=== PATIENT | female | born 1965 | race Caucasian/White ===

== ENCOUNTER → 2022-04-11 | Outpatient (CLI) | payer OTHER | LOC: ORTHO 13:01 | PROVIDERS: ATTEND Orthopaedic Surgery | DX: G56.02 Carpal tunnel syndrome, left upper limb (principal) | CPT/HCPCS: 99203 ==

== ENCOUNTER 2022-04-30 05:37 | Outpatient (CLI) | payer OTHER ==
[~2022-04-30] VITALS: Ht 165.1 cm; Wt 77.4 kg
== END 2022-04-30 16:59 | disposition home or self-care (01) ==
LOC: PREOP 05:37
PROVIDERS: ATTEND Orthopaedic Surgery
DX: Z01.818 Encounter for other preprocedural examination (principal)

== ENCOUNTER 2022-05-07 07:48 | Day surgery (SDC) | payer OTHER ==
[~2022-05-07] VITALS: Ht 165.1 cm; Wt 77.4 kg
[2022-05-07] VITALS (7 sets, daily range): BP systolic 142–173; BP diastolic 86–97
[2022-05-07] MEDS ORDERED: ceFAZolin INJECTION 1,000 MG VIAL IV ONE (08:00)
[2022-05-07] MEDS ORDERED: LACTATED RINGERS 1,000 ML IV PRN (08:00)
[2022-05-07] MEDS ORDERED: ceFAZolin 1 GM/NS 50 ML (SDC/OR ONLY) IV ONE ×2 (08:00)
[2022-05-07] MEDS ORDERED: NEO/POLY/BAC (NEOSPORIN) OINT 15 GM TUBE ONE (08:18)
[2022-05-07] MEDS ORDERED: BUPIVACAINE 0.5% 30 ML (SENSORCAINE) VIAL ONE (08:18)
[2022-05-07] MEDS ORDERED: PROPOFOL INJECTION 0 ML IV ONE (08:44)
[2022-05-07] MEDS ORDERED: MIDAZOLAM 2 MG/2 ML (VERSED) VIAL ONE ×2 (08:44→10:04)
--- NOTE | 2022-05-07 09:55 | Progress Note-Pre Operative ---
Pre-Operative Progress Note Date of Available H&P: Apr 11, 2022 Date H&P Reviewed: May 07, 2022 Time H&P Reviewed: 09:45 History & Physical: H&P Reviewed, Patient Examed, No changes noted Pre-Operative Diagnosis: Left Carpal Tunnel Syndrome ORLANDO ZULETA MD May 07, 2022 09:55
[2022-05-07] MEDS ORDERED: LIDOCAINE PF 0.5% 50 ML (XYLOCAINE) VIAL ONE (10:25)
[2022-05-07] MEDS ORDERED: PROPOFOL INJECTION 50 ML IV ONE (10:36)
--- NOTE | 2022-05-07 10:50 | Anesthesia-General Post-Op ---
MAC Patient Condition Mental Status/LOC: Same as Preop Cardiovascular: Satisfactory Nausea/Vomiting: Absent Respiratory: Satisfactory Pain: Controlled Complications: Absent Post Op Complications Complications None Follow Up Care/Instructions Patient Instructions None needed. Anesthesiology Discharge Order Discharge Order Patient is doing well, no complaints, stable vital signs, no apparent adverse anesthesia problems. No complications reported per nursing. MAGGIE GASTON F[employer] WEB DEVELOPER May 07, 2022 10:50
--- NOTE | 2022-05-07 10:53 | Operative Report - Ortho ---
Operative Report Surgeon (s)/Paint Process Engineer (s) Surgeon ORLANDO ZULETA MD Paint Process Engineer n/a Pre-Operative Diagnosis Left Carpal Tunnel Syndrome Post-Operative Diagnosis same Operative Report Date of Procedure: May 07, 2022 Name of Procedure Performed: Left Carpal Tunnel Release Description & Findings After obtaining informed consent and marking the patient in the preoperative holding area, the patient was administered IV antibiotics. The patient was t aken to the operating room and brianna block anesthesia was induced. The left upper extremity was prepped and draped in the usual sterile fashion. Surgical timeout was taken. Incision was made just ulnar to the thenar crease. Blunt dissection was carried down to the longitudinal fibers of the palmar fascia; these were divided in line revealing the transverse carpal ligament. Beginning distally and working proximally, carpal tunnel release was performed. Nerve protector was placed and release was completed back to the level of the forearm fascia. Probe was inserted and release was palpably complete. Tourniquet was dropped and hemostasis was achieved. Wound was closed with 4-0 nylon. Wound was dressed with antibiotic ointment, xeroform, 4x4s, gal, ABD for soft splint, cast padding, and ELIN wrap. Patient tolerated the proceudre well and was stable to the recovery room. Anesthesia Type Brianna block Estimated Blood Loss minimal Specimen(s) collected/removed None ORLANDO ZULETA MD May 07, 2022 10:53
[2022-05-07] MEDS ORDERED: ACHD5005 PO (10:57)
[2022-05-07] MEDS ORDERED: HYDROmorphone 2 MG/ML VIAL (DILAUDID) IV ONE (11:00)
[2022-05-07] MEDS ORDERED: ONDANSETRON 4 MG/2 ML (SDV) Z0FRAN IVP PRN (11:00)
== END 2022-05-07 11:50 | disposition home or self-care (01) ==
LOC: SDC 07:48
PROVIDERS: ATTEND Orthopaedic Surgery
DX: G56.02 Carpal tunnel syndrome, left upper limb (principal); Z28.310 Unvaccinated for COVID-19
CPT/HCPCS: 87081

== ENCOUNTER → 2022-05-22 | Outpatient (CLI) | payer OTHER ==
[~2022-05-22] MED LIST: ACHD5005 PO
== END ==
LOC: ORTHO 13:25
PROVIDERS: ATTEND Orthopaedic Surgery
DX: Z47.89 Encounter for other orthopedic aftercare (principal)

== ENCOUNTER → 2022-06-26 | Outpatient (CLI) | payer OTHER | LOC: ORTHO 09:38 | PROVIDERS: ATTEND Orthopaedic Surgery | DX: Z47.89 Encounter for other orthopedic aftercare (principal) ==